=== PATIENT | male | born 1980 | race Caucasian/White ===

== ENCOUNTER 2020-02-12 14:30 | Outpatient (CLI) | payer MEDICAID, SELFPAY ==
--- NOTE | 2020-02-12 14:38 | XRR_ITS ---
PROCEDURE INFORMATION: Exam: XR Chest, 2 Views Exam date and time: 02/12/2020 3:03 PM Age: 39 years old Clinical indication: Cough; Additional info: Cough/exposure to covid TECHNIQUE: Imaging protocol: XR of the chest Views: 2 views. COMPARISON: CR Chest 2 views* [id number] 04/17/2013 10:21 AM FINDINGS: Lungs: Unremarkable. No consolidation. Pleural space: Unremarkable. No pleural effusion. No pneumothorax. Heart/Mediastinum: Unremarkable. No cardiomegaly. Bones/joints: Unremarkable. XR/XR chest 2V* [id number] IMPRESSION: No acute findings.
== END 2020-02-12 14:31 | disposition home or self-care (01) ==
LOC: RAD 14:35
PROVIDERS: PCP Nurse Practitioner Family; Visit Provider Nurse Practitioner Family
DX: R05 Cough (principal); Z20.828 Contact with and (suspected) exposure to other viral communicable diseases
CPT/HCPCS: 71046

== ENCOUNTER 2020-06-05 10:49 | Outpatient (CLI) | payer MEDICAID, SELFPAY | END 2020-06-05 10:50 | LOC: NSACUTE 06-07 10:51 | PROVIDERS: PCP Nurse Practitioner Family; Visit Provider Nurse Practitioner Family | DX: R20.2 Paresthesia of skin (principal); R20.0 Anesthesia of skin | CPT/HCPCS: 95910 ==

== ENCOUNTER → 2020-06-27 14:34 | Outpatient (BNVA) | payer MEDICAID, SELFPAY | PROVIDERS: PCP Nurse Practitioner Family; Visit Provider Podiatrist Foot & Ankle Surgery | DX: Z47.89 Encounter for other orthopedic aftercare (principal); M79.672 Pain in left foot | CPT/HCPCS: 73630 ==

== ENCOUNTER 2020-09-27 13:33 | Outpatient (CLI) | payer MEDICAID, SELFPAY ==
[2020-09-27 14:10] LABS: Basophils % 0.4 %; Eosinophils # 0.1 10^3/uL (0.0-0.8); Eosinophils % 0.8 %; Hematocrit 42.7 % (42.0-52.0); Hemoglobin 14.5 g/dL (11.7-16.6); Lymphocytes # 2.2 10^3/uL (0.8-4.8); Lymphocytes % 26.3 %; Mean Corpuscular Hemoglobin 30.1 pg (28.0-34.0); Mean Corpuscular Volume 88.6 fL (80-94); Mean Platelet Volume 10.1 fL (7.4-10.4); Monocytes # 0.6 10^3/uL (0.2-0.9); Monocytes % 6.7 %; Neutrophils # 5.48 10^3/uL (1.8-7.7); Neutrophils % 65.7 %; Nucleated Red Blood Cells % 0 %; Platelet Count 213 10^3/cmm (130-400); Red Blood Count 4.82 10^6/uL (4.1-5.3); Red Cell Distribution Width 12.1 % (12.1-15.1); White Blood Count 8.4 10^3/uL (4.0-10.0)
[2020-09-27 14:54] LABS: Anion Gap 12.9 (5-19); Blood Urea Nitrogen 13 mg/dL (6-20); Calcium 8.6 mg/dL (8.5-10.5); Carbon Dioxide 26 mmol/L (22-29); Chloride 102 mmol/L (98-107); Ferritin 262 ng/mL (30-400); Glucose 114 mg/dL (65-115); Magnesium 2.2 mg/dL (1.7-2.3); Osmolality Calculated 285 mOsm/kg (285-295); Potassium 3.9 mmol/L (3.5-5.1); Sodium 137 mmol/L (136-145)
[2020-09-27 15:08] LABS: Folate Level 15.5 ng/mL (4.5-32.2)
[2020-09-27 15:10] LABS: Vitamin B12 376 pg/mL (232-1245)
[2020-09-30 13:13] LABS: COMPLEMENT COMPONENT C3C 173 mg/dL (82-185); COMPLEMENT COMPONENT C4C 31 mg/dL (15-53)
[2020-09-30 16:27] LABS: COMPLEMENT, TOTAL (CH50) >60 U/mL (31-60)
[2020-10-02 13:57] LABS: CENTROMERE B ANTIBODY <1.0 NEG AI (<1.0 NEG); JO-1 ANTIBODY <1.0 NEG AI (<1.0 NEG); RNP ANTIBODY <1.0 NEG AI (<1.0 NEG); SCL-70 ANTIBODY <1.0 NEG AI (<1.0 NEG); SJOGREN'S ANTIBODY (SS-A) <1.0 NEG AI (<1.0 NEG); SM ANTIBODY <1.0 NEG AI (<1.0 NEG); SS-B <1.0 NEG AI (<1.0 NEG)
[2020-10-03 11:33] LABS: ANA SCREEN, IFA POSITIVE (NEGATIVE)
[2020-10-03 12:07] LABS: Zinc Level, Serum or Plasma 73 mcg/dL (60-130)
[2020-10-06 01:43] LABS: DNA AB (DS) CRITHIDIA,IFA NEGATIVE (NEGATIVE)
[2020-10-09 16:23] LABS: THYROID PEROXIDASE ANTIBODIES 2 IU/mL (<9)
== END 2020-09-27 13:34 | disposition home or self-care (01) ==
LOC: LAB 13:41
PROVIDERS: PCP Nurse Practitioner Family; Visit Provider Podiatrist Foot & Ankle Surgery
DX: G25.81 Restless legs syndrome (principal); M79.673 Pain in unspecified foot; R20.0 Anesthesia of skin; R20.2 Paresthesia of skin
CPT/HCPCS: 36415; 80048; 82607; 82728; 82746; 83735; 84630; 85025; 86160; 86162; 86235; 86255; 86376

== ENCOUNTER 2021-07-15 08:07 | Outpatient (CLI) | payer MEDICAID, SELFPAY ==
--- NOTE | 2021-07-15 08:14 | US_ITS ---
WS: [id number] RIGHT UPPER QUADRANT ULTRASOUND HISTORY: DIARRHEA/ELEVATED LIVER ENZYMES COMPARISON: 03/19/2019 Liver: 18.0 cm in length. Liver is moderately enlarged. Diffuse coarse echotexture and increased echo genicity. Attenuation throughout the liver. The entire liver is not well visualized due to attenuatio n. No mass or bile duct dilatation. Portal Vein: Normal hepatopetal flow with monophasic waveform. Gallbladder: Normally distended gallbladder with no stones or wall thickening. CBD: 0.4 cm Pancreas: Not visualized. Obscured by body habitus and bowel gas. Right kidney: 10.7 cm in length. Normal size and echogenicity. No hydronephrosis or mass. Aorta and IVC: Poorly visualized. No ascites. US/US abdomen limited [id number] IMPRESSION: 1. Technically difficult evaluation of the RIGHT upper quadrant due to body roca bitus. 2. Gallbladder is negative. 3. Moderate hepatomegaly and hepatic steatosis. No mass identified.
== END 2021-07-15 08:08 | disposition home or self-care (01) ==
LOC: RAD 08:11
PROVIDERS: PCP Nurse Practitioner Family; Visit Provider Family Medicine
DX: R19.7 Diarrhea, unspecified (principal); R74.8 Abnormal levels of other serum enzymes; R16.0 Hepatomegaly, not elsewhere classified; K76.0 Fatty (change of) liver, not elsewhere classified
CPT/HCPCS: 76705